=== PATIENT | female | born 1995 | race African-American/Black ===

== ENCOUNTER 2017-01-13 18:13 | Observation (INO) | payer SELFPAY ==
[~2017-01-13] VITALS: Ht 170.2 cm; Wt 65.0 kg
[2017-01-13 18:14] VITALS: BP 125/78; PULSE 85; RESP 18; TEMP 98.9; O2SAT 100
--- NOTE | 2017-01-13 20:23 | PD ---
HPI Chief Complaint: Abdominal Pain Time Seen by Provider: 20:12 Travel History International Travel<30 days: No Contact w/Intl Traveler<30days: No Traveled to known affect area: No History of Present Illness HPI 21-year-old female here for evaluation of abdominal pain and abnormal CT scan. The patient reports that for the last 2 weeks she has been having diffuse abdominal pain described as sharp, currently 6 out of 10, constant, intermittently worse at times, worse with movement and palpation. She had a CT abdomen pelvis performed at [address] [place] [address] [facility] which shows significantly abnormal exam with large amount of high density blood in the pelvis with bilateral enlarged dominant follicles within the ovaries which may represent the source of bleeding. The appendix was not visualized. Patient denies vaginal bleeding or discharge. She is sexually active with one partner whom she has been with for 3 years and believe she is in a monogamous relationship. No urinary symptoms. No fevers or chills. She has been feeling nauseous as well as light headed and feeling as though she may pass out. No history of abdominal surgeries. The patient also complains of being constipated over the last several days. Her LMP was December 29. [facility] Past Medical History ?: Not LMP: 12/29/16 Social History Tobacco Use: No Allergies-Medications (Allergen,Severity, Reaction): Coded Allergies: Penicillins (Verified Allergy, Unknown, 01/13/17) Review of Systems Except as stated in HPI: all other systems reviewed are Neg Physical Exam Narrative GENERAL: Well-developed, well-nourished, comfortable, no apparent distress. SKIN: Focused skin assessment warm/dry. HEAD: Atraumatic. Normocephalic. EYES: Pupils equal and round. No scleral icterus. No injection or drainage. ENT: Mucous membranes pink and moist. NECK: Trachea midline. No JVD. CARDIOVASCULAR: Regular rate and rhythm. RESPIRATORY: No accessory muscle use. Clear to auscultation. Breath sounds equal bilaterally. GASTROINTESTINAL: Abdomen soft, moderate distention with moderate diffuse tenderness. No peritoneal signs. MUSCULOSKELETAL: No obvious deformities. No clubbing. No cyanosis. No edema. NEUROLOGICAL: Awake and alert. No obvious cranial nerve deficits. Motor grossly within normal limits. Normal speech. PSYCHIATRIC: Appropriate mood and affect; insight and judgment normal. Data Data Last Documented VS Vital Signs Date Time Temp Pulse Resp B/P (MAP) Pulse Ox O2 Delivery O2 Flow Rate FiO2 01/13/17 20:28 85 18 120/67 (84) 100 Room Air 01/13/17 18:14 98.9 Orders Orders Complete Blood Count With Diff (01/13/17 20:16) Comprehensive Metabolic Panel (01/13/17 20:16) Type And Screen (01/13/17 20:16) Urinalysis - C+S If Indicated (01/13/17 20:16) Ed Urine Pregnancytest Poc (01/13/17 20:16) Prothrombin Time / Inr (Pt) (01/13/17 20:16) Act Partial Throm Time (Ptt) (01/13/17 20:16) Morphine Inj (Morphine Inj) (01/13/17 20:30) Ondansetron Inj (Zofran Inj) (01/13/17 20:30) Beta Hcg (Quant/Titer) (01/13/17 20:23) Us Pelvis Comp W Dop Transvag (01/13/17 ) Gc And Chlamydia Pcr (01/13/17 22:12) Wet Prep Profile (01/13/17 22:12) Admit Order (Ed Use Only) (01/13/17 22:14) Labs Laboratory Tests Test 01/13/17 20:25 01/13/17 22:15 White Blood Count 8.1 TH/MM3 Red Blood Count 3.72 MIL/MM3 Hemoglobin 11.0 GM/DL Hematocrit 32.8 % Mean Corpuscular Volume 88.2 FL Mean Corpuscular Hemoglobin 29.6 PG Mean Corpuscular Hemoglobin Concent 33.5 % Red Cell Distribution Width 12.9 % Platelet Count 379 TH/MM3 Mean Platelet Volume 7.3 FL Neutrophils (%) (Auto) 68.5 % Lymphocytes (%) (Auto) 21.0 % Monocytes (%) (Auto) 7.9 % Eosinophils (%) (Auto) 2.1 % Basophils (%) (Auto) 0.5 % Neutrophils # (Auto) 5.6 TH/MM3 Lymphocytes # (Auto) 1.7 TH/MM3 Monocytes # (Auto) 0.6 TH/MM3 Eosinophils # (Auto) 0.2 TH/MM3 Basophils # (Auto) 0.0 TH/MM3 CBC Comment DIFF FINAL Differential Comment Prothrombin Time 11.4 SEC Prothromb Time International Ratio 1.0 RATIO Activated Partial Thromboplast Time 32.3 SEC Urine Color LIGHT-YELLOW Urine Turbidity CLEAR Urine pH 5.5 Urine Specific [place] 1.031 Urine Protein NEG mg/dL Urine Glucose (UA) NEG mg/dL Urine Ketones NEG mg/dL Urine Occult Blood NEG Urine Nitrite NEG Urine Bilirubin NEG Urine Urobilinogen LESS THAN 2.0 MG/DL Urine Leukocyte Esterase NEG Urine RBC LESS THAN 1 /hpf Urine WBC 1 /hpf Urine Squamous Epithelial Cells 3 /hpf Urine Bacteria RARE /hpf Urine Mucus FEW /lpf Microscopic Urinalysis Comment CULT NOT INDICATED Blood Urea Nitrogen 13 MG/DL Creatinine 0.81 MG/DL Random Glucose 87 MG/DL Total Protein 8.4 GM/DL Albumin 3.5 GM/DL Calcium Level 8.4 MG/DL Alkaline Phosphatase 61 U/L Aspartate Amino Transf (AST/SGOT) 12 U/L Alanine Aminotransferase (ALT/SGPT) 16 U/L Total Bilirubin 0.3 MG/DL Sodium Level 136 MEQ/L Potassium Level 3.7 MEQ/L Chloride Level 105 MEQ/L Carbon Dioxide Level 25.4 MEQ/L Anion Gap 6 MEQ/L Estimat Glomerular Filtration Rate 106 ML/MIN Human Chorionic Gonadotropin, Quant LESS THAN 1 MIU/ML Clue Cells (Wet Prep) NONE SEEN Vaginal Trichomonas (Wet Prep) NONE SEEN Vaginal Yeast (Wet Prep) NONE SEEN Chlamydia trachomatis DNA (PCR) NOT DETECTED Neisseria gonorrhoeae DNA (PCR) NOT DETECTED MDM Medical Decision Making Medical Screen Exam Complete: Yes Emergency Medical Condition: Yes Differential Diagnosis Hemoperitoneum, ovarian cyst, ovarian torsion, ectopic /ruptured ectopic , ileus Narrative Course 9:00PM: OB hospitalist Dr. Arredondo was contacted and agrees with plan for labs and pelvic US. She will present to the ED to evaluate the patient. Vital signs show heart rate 85, blood pressure 125/78, pulse ox 100% on room air , oral temp of 98.9F. CBC: WBC 8.1, hemoglobin 11, hematocrit 32.8, platelets 379. CMP is essentially unremarkable. Beta hCG is negative. UA shows rare bacteria, not suggestive of UTI. The patient was evaluated by OB hospitalist Dr. Arredondo who will admit the patient to her service for further treatment and evaluation of hemoperitoneum, ovarian cyst. Diagnosis Primary Impression: Hemoperitoneum Additional Impressions: Ovarian cyst Qualified Codes: N83.201 - Unspecified ovarian cyst, right side; N83.202 - Unspecified ovarian cyst, left side Abdominal pain Qualified Codes: R10.84 - Generalized abdominal pain Admitting Information Admitting Physician Requests: Observation Tom Carrera MD Jan 13, 2017 20:23
[2017-01-13 20:28] VITALS: BP 120/67; PULSE 85; RESP 18; O2SAT 100
[2017-01-13] MEDS ORDERED: MORPHINE SULFATE 4 MG/ML INJ IV PUSH ONE (20:30)
[2017-01-13] MEDS ORDERED: ONDANSETRON HCL 4 MG/2 ML VIAL IV PUSH ONE (20:30)
[2017-01-13 21:24] LABS: AUTOMATED NEUTROPHIL # 5.6 TH/MM3 (1.8-7.7); BASOPHIL % 0.5 % (0.0-2.0); EOSINOPHIL # 0.2 TH/MM3 (0-0.4); EOSINOPHIL % 2.1 % (0.0-4.0); HEMATOCRIT 32.8 % (35.0-46.0); HEMO FLAGS DIFF FINAL; LYMPHOCYTE # 1.7 TH/MM3 (1.0-4.8); MEAN CELL VOLUME 88.2 FL (80.0-100.0); MEAN CORPUSCULAR HEMOGLOBIN 29.6 PG (27.0-34.0); MEAN CORPUSCULAR HGB CONC 33.5 % (32.0-36.0); MONO % 7.9 % (0.0-8.0); NEUT % 68.5 % (16.0-70.0); PLATELET COUNT 379 TH/MM3 (150-450); RED BLOOD COUNT 3.72 MIL/MM3 (4.00-5.30); RED CELL DISTRIBUTION WIDTH 12.9 % (11.6-17.2); WHITE BLOOD COUNT 8.1 TH/MM3 (4.0-11.0)
[2017-01-13 21:27] LABS: BACTERIA, URINE RARE /hpf; BLOOD, URINE NEG (NEG); COMMENT (UR) CULT NOT INDICATED; CULTURE IF INDICATED CULT NOT INDICATED; GLUCOSE,URINE NEG (NEG); KETONE, URINE NEG (NEG); MUCUS URINE FEW /lpf (OCC); NITRITE,URINE NEG (NEG); PH, URINE 5.5 (5.0-8.5); SQUAMOUS EPITHELIAL CELL URINE 3 /hpf (0-5); URINE COLOR LIGHT-YELLOW (YELLW/STRAW)
[2017-01-13 21:41] LABS: ANION GAP 6 MEQ/L (5-15); AST (GOT) 12 U/L (15-37); BICARBONATE 25.4 MEQ/L (21.0-32.0); BLOOD UREA NITROGEN 13 MG/DL (7-18); CHLORIDE 105 MEQ/L (98-107); GLOMERULAR FILTRATION RATE 106 ML/MIN (>89); POTASSIUM 3.7 MEQ/L (3.5-5.1); SODIUM (NA) 136 MEQ/L (136-145)
[2017-01-13 21:44] LABS: APTT (PATIENT) 32.3 SEC (24.3-30.1); BETA HCG QUANT LESS THAN 1 MIU/ML (0-5); PROTHROMBIN TIME - PATIENT 11.4 SEC (9.8-11.6)
[2017-01-13 21:45] LABS: ALKALINE PHOSPHATASE 61 U/L (45-117); ALT (GPT) 16 U/L (10-53); TOTAL BILIRUBIN ADULT 0.3 MG/DL (0.2-1.0)
--- NOTE | 2017-01-13 22:08 | RADRPT ---
EXAM DATE/TIME: 01/13/2017 20:40 [facility] COMPARISON: No previous studies available for comparison. EXTERNAL COMPARISON : [facility] [place], CT ABDOMEN & PELVIS W CONTRAST, January 13, 2017 INDICATIONS : Pelvic pain and abnormal CT. MEDICAL HISTORY : Pelvic pain. SURGICAL HISTORY : None. ENCOUNTER: Initial ACUITY: 2 days PAIN SCORE: 10/10 LOCATION: Bilateral pelvis MEASUREMENTS: UTERUS: 6.6 x 4.1 x 3.8 cm ENDOMETRIAL STRIPE: >20 mm FINDINGS: UTERUS: The myometrium has homogeneous echotexture without mass.The uterus is within normal limits for the pa tient's age. RIGHT OVARY: There is a complex 5.1 x 5.3 x 4.7 cm mass. There appears to have a complex cystic component with low level echoes. A normal appearing separate ovary is not seen. LEFT OVARY: There is a 4.6 x 4.1 x 3.6 cm complex predominantly cystic mass seen in the left adnexa. The cystic c omponent has low level echoes. A normal appearing separate ovary is not seen. MISCELLANEOUS: There is minimal free fluid. CONCLUSION: Chronic complex adnexal masses seen bilaterally. Separate normal appearing ovaries are not seen. Thes e could be hemorrhagic cyst, endometriomas, or other processes such as tubo-ovarian abscesses. Tavo Penny MD on January 13, 2017 at 22:00 Board Certified Radiologist. This report was verified electronically.
[2017-01-13 22:26] VITALS: BP 117/78; PULSE 71; RESP 18; O2SAT 98
--- NOTE | 2017-01-13 22:37 | HHI.HP ---
HPI Chief Complaint Abdominal pain Travel History International Travel<30 Days: No Contact w/Intl Traveler<30Days: No Known Affected Area: No History of Present Illness HPI The patient is 21-year-old 0 who presented to the ED for evaluation of abdominal pain and abnormal CT scan. She reports that for the last 2 weeks she' s been having diffuse abdominal pain described as dull but with sharp cramping characteristics, 6 out of 10 upon her arrival to the ED, constant, intermittently worse at times, worse with movement and palpation. She reported to me that the pain onset acutely after dinner on 12/31/16. At that point it was severe pain that lasted for 8 hours with radiation to her back. She reports that she had that type of pain again 4 days ago but otherwise the pain is mostly dull in nature with the sharp cramps that have been described above. She had a CT of the abdomen and pelvis performed at [facility] weeks radiology that showed a large amount of high density blood in the pelvis with bilateral enlarged dominant follicles within the ovaries. The patient denies any vaginal bleeding or discharge. She reports her last menstrual period was December 29 through January 04. She is sexually active with 1 partner whom she has been with for 3 years and believes she is in a monogamous relationship. She denies any fever or chills. She reports she's been feeling nauseous. She reported to the ED attending that she felt lightheaded like she may pass out but didn't report those symptoms at this time. She reports that she's been constipated and having some urinary symptoms. She reports she is more comfortable when she lies on her last side. She reports that the pain is improved after getting morphine in the ED. She reports no improvement with Tylenol at home. History Past Medical History Medical History: Denies Significant Hx Obstetric History Obstetric History G0 Menarche age 10, menses occur every month, and last 7 days History of chlamydia in 2012 Patient denies any history of abnormal Paps Past Surgical History Surgical History: No Previous Surgery Family History Narrative Family History Gastric ulcers, colon cancer Social History Alcohol Use: Yes (occasional) Tobacco Use: No Substance Abuse: No Allergies-Medications (Allergen,Severity, Reaction): Coded Allergies: Penicillins (Verified Allergy, Unknown, 01/13/17) Review of Systems General / Constitutional: No: Fever, Weight Gain, Weight Loss, Chills, Other Eyes: No: Diploplia, Blurred Vision, Visual changes, Pain, Photophobia, Other HENT: No: Headaches, Vertigo, Dental Difficulties, Lightheadedness, Other Cardiovascular: No: Irregular Rhythm, Chest Pain or Discomfort, Palpitations, Tachycardia, Syncope, Varicosities, Edema, Cyanosis, Other Respiratory: No: Cough, Short of Breath, Wheezing, Other Gastrointestinal: Nausea, Constipation Genitourinary: Dysuria Musculoskeletal: No: Limited ROM, Weakness, Cramping, Edema, Pain, Other Skin: No Rash, No Itching, No Dryness, No Lumps, No Change in Pigmentation, No Change in Nails, No Alopecia, No Lesions, No Breast Lumps, No Breast Tenderness , No Breast Swelling, No Other Neurologic: No: Weakness, Dizziness, Syncope, Focal Abnormalities, Coordination Problem, Headache, Slurred Speech, Seizures, Other Psychiatric: No: Anxiety, Depression, Suicidal Ideations, Disorder of Thought, Mood Disorder, Substance Abuse, Homicidal Ideation, Other Endocrine: No: Heat Intolerance, Cold Intolerance, Polydipsia, Polyuria, Other Hematologic/Lymphatic: No Easy Bruising, No Lymph Node Enlargement, No Other Physical Exam Vital Signs Date Time Temp Pulse Resp B/P (MAP) Pulse Ox O2 Delivery O2 Flow Rate FiO2 01/13/17 22:26 71 18 117/78 (91) 98 Room Air 01/13/17 20:28 85 18 120/67 (84) 100 Room Air 01/13/17 18:14 98.9 85 18 125/78 (94) 100 Room Air Narrative GENERAL: Well-nourished, well-developed patient. SKIN: Warm and dry. HEAD: Normocephalic and atraumatic. EYES: No scleral icterus. No injection or drainage. ENT: No nasal drainage noted. Mucous membranes pink. Airway patent. NECK: Supple, trachea midline. No JVD. CARDIOVASCULAR: Regular rate and rhythm without murmurs, gallops, or rubs. RESPIRATORY: Breath sounds equal bilaterally. No accessory muscle use. BREASTS: Deferred ABDOMEN/GI: Abdomen soft, mildly tender, bowel sounds present, no rebound, no guarding GENITOURINARY: External Genitalia: intact and normal in appearance. Normal BUS. Vagina with increased thick white discharge. Grossly normal rugae. No cervical or vaginal masses noted. EXTREMITIES: No cyanosis or edema. BACK: Nontender without obvious deformity. No CVA tenderness. NEUROLOGICAL: Awake and alert. Motor and sensory grossly within normal limits. Five out of 5 muscle strength in all muscle groups. Normal speech. Psychiatric: Grossly normal memory and affect Musculoskeletal: Grossly normal range of motion, muscle strength Caprini VTE Risk Assessment Caprini VTE Risk Assessment: No/Low Risk (score <= 1) Caprini Risk Assessment Model Point Value = 1 Point Value = 2 Point Value = 3 Point Value = 5 Age 41-60 Minor surgery BMI > 25 kg/m2 Swollen legs Varicose veins or History of unexplained or recurrent spontaneous Oral contraceptives or hormone replacement Sepsis (< 1 month) Serious lung disease, including pneumonia (< 1 month) Abnormal pulmonary function Acute myocardial infarction Congestive heart failure (< 1 month) History of inflammatory bowel disease Medical patient at bed rest Age 61-74 Arthroscopic surgery Major open surgery (> 45 min) Laparoscopic surgery (> 45 min) Malignancy Confined to bed (> 72 hours) Immobilizing plaster cast Central venous access Age >= 75 History of VTE Family history of VTE Factor V Leiden Prothrombin [id number] Lupus anticoagulant Anticardiolipin antibodies Elevated serum homocysteine Heparin-induced thrombocytopenia Other congenital or acquired thrombophilia Stroke (< 1 month) Elective arthroplasty Hip, pelvis, or leg fracture Acute spinal cord injury (< 1 month) Prophylaxis Regimen Total Risk Factor Score Risk Level Prophylaxis Regimen 0-1 Low Early ambulation 2 Moderate Order ONE of the following: *Sequential Compression Device (SCD) *Heparin 5000 units SQ BID 3-4 Higher Order ONE of the following medications: *Heparin 5000 units SQ TID *Enoxaparin/Lovenox 40 mg SQ daily (WT < 150 kg, CrCl > 30 mL/min) *Enoxaparin/Lovenox 30 mg SQ daily (WT < 150 kg, CrCl > 10-29 mL/min) *Enoxaparin/Lovenox 30 mg SQ BID (WT < 150 kg, CrCl > 30 mL/min) AND/OR *Sequential Compression Device (SCD) 5 or more Highest Order ONE of the following medications: *Heparin 5000 units SQ TID (Preferred with Epidurals) *Enoxaparin/Lovenox 40 mg SQ daily (WT < 150 kg, CrCl > 30 mL/min) *Enoxaparin/Lovenox 30 mg SQ daily (WT < 150 kg, CrCl > 10-29 mL/min) *Enoxaparin/Lovenox 30 mg SQ BID (WT < 150 kg, CrCl > 30 mL/min) AND *Sequential Compression Device (SCD) Data Data Orders Orders Complete Blood Count With Diff (01/13/17 20:16) Comprehensive Metabolic Panel (01/13/17 20:16) Type And Screen (01/13/17 20:16) Urinalysis - C+S If Indicated (01/13/17 20:16) Ed Urine Pregnancytest Poc (01/13/17 20:16) Prothrombin Time / Inr (Pt) (01/13/17 20:16) Act Partial Throm Time (Ptt) (01/13/17 20:16) Morphine Inj (Morphine Inj) (01/13/17 20:30) Ondansetron Inj (Zofran Inj) (01/13/17 20:30) Beta Hcg (Quant/Titer) (01/13/17 20:23) Us Pelvis Comp W Dop Transvag (01/13/17 ) Gc And Chlamydia Pcr (01/13/17 22:12) Wet Prep Profile (01/13/17 22:12) Admit Order (Ed Use Only) (01/13/17 22:14) Hydro Excavation Operator / Telemetry EVA.Q8H (01/13/17 22:35) Diet Npo (01/14/17 Breakfast) Activity Oob With Assistance (01/13/17 22:35) Labs Laboratory Tests Test 01/13/17 20:25 01/13/17 22:15 White Blood Count 8.1 Red Blood Count 3.72 Hemoglobin 11.0 Hematocrit 32.8 Mean Corpuscular Volume 88.2 Mean Corpuscular Hemoglobin 29.6 Mean Corpuscular Hemoglobin Concent 33.5 Red Cell Distribution Width 12.9 Platelet Count 379 Mean Platelet Volume 7.3 Neutrophils (%) (Auto) 68.5 Lymphocytes (%) (Auto) 21.0 Monocytes (%) (Auto) 7.9 Eosinophils (%) (Auto) 2.1 Basophils (%) (Auto) 0.5 Neutrophils # (Auto) 5.6 Lymphocytes # (Auto) 1.7 Monocytes # (Auto) 0.6 Eosinophils # (Auto) 0.2 Basophils # (Auto) 0.0 CBC Comment DIFF FINAL Differential Comment Prothrombin Time 11.4 Prothromb Time International Ratio 1.0 Activated Partial Thromboplast Time 32.3 Urine Color LIGHT-YELLOW Urine Turbidity CLEAR Urine pH 5.5 Urine Specific [place] 1.031 Urine Protein NEG Urine Glucose (UA) NEG Urine Ketones NEG Urine Occult Blood NEG Urine Nitrite NEG Urine Bilirubin NEG Urine Urobilinogen LESS THAN 2.0 Urine Leukocyte Esterase NEG Urine RBC LESS THAN 1 Urine WBC 1 Urine Squamous Epithelial Cells 3 Urine Bacteria RARE Urine Mucus FEW Microscopic Urinalysis Comment CULT NOT INDICATED Blood Urea Nitrogen 13 Creatinine 0.81 Random Glucose 87 Total Protein 8.4 Albumin 3.5 Calcium Level 8.4 Alkaline Phosphatase 61 Aspartate Amino Transf (AST/SGOT) 12 Alanine Aminotransferase (ALT/SGPT) 16 Total Bilirubin 0.3 Sodium Level 136 Potassium Level 3.7 Chloride Level 105 Carbon Dioxide Level 25.4 Anion Gap 6 Estimat Glomerular Filtration Rate 106 Human Chorionic Gonadotropin, Quant LESS THAN 1 Assessment/Plan Assessment and Plan Assessment/plan: 1. Suspected hemoperitoneum: CT scan showed a large amount of high density blood in the pelvis. Ultrasound commented there was minimal free fluid. Suspect the patient had a ruptured hemorrhagic cyst that has since stopped bleeding. I discussed the option of surgical evacuation of hemoperitoneum versus expectant management and observation overnight with the patient. The patient declined surgery at this time. I discussed that the patient is actively bleeding at this time she would require surgery, as well as for a large hemoglobin drop, or other significant concerns. We'll admit the patient for 23 hour observation and check serial hemoglobins. Scheduled the patient that I think at this time the cyst has stopped bleeding so surgery would primarily be to evacuate hemoperitoneum. We'll make nothing by mouth for now. 2. Bilateral complex ovarian mass: Right semi-is accomplished 5.1 x 5.3 x 4.7 cm mass with a complex cystic component and left ovaries 4.6 x 4.1 x 3.6 cm complex predominantly cystic mass. Will refer to Dr. Lu for outpatient evaluation and management 3. Vaginal discharge: Wet prep and GC chlamydia cultures were sent 4. UA negative Edie Arredondo MD Jan 13, 2017 22:37
[2017-01-13 23:08] VITALS: BP 106/56; PULSE 76; RESP 16; TEMP 98.5; O2SAT 100
[2017-01-14] VITALS (8 sets, daily range): BP systolic 93–110; BP diastolic 53–81; PULSE 77–101; RESP 16–18; TEMP 98–98.4; O2SAT 95–100
[2017-01-14 00:40] LABS: CHLAMYDIA PCR NOT DETECTED (NOT DETECT); NEISSERIA PCR NOT DETECTED (NOT DETECT)
[2017-01-14] MEDS ORDERED: oxyCODONE/ACETAMINOPHEN 5 MG/325 MG TAB PO PRN (00:45)
[2017-01-14] MEDS ORDERED: MORPHINE SULFATE 4 MG/ML INJ IV ONE (00:45)
[2017-01-14] MEDS: oxyCODONE/ACETAMINOPHEN 5 MG/325 MG TAB PO PRN ×2 (03:11→14:34)
[2017-01-14 09:02] LABS: HEMATOCRIT 28.5 % (35.0-46.0); MEAN CELL VOLUME 88.1 FL (80.0-100.0); MEAN CORPUSCULAR HEMOGLOBIN 29.6 PG (27.0-34.0); MEAN CORPUSCULAR HGB CONC 33.6 % (32.0-36.0); PLATELET COUNT 317 TH/MM3 (150-450); RED BLOOD COUNT 3.23 MIL/MM3 (4.00-5.30); RED CELL DISTRIBUTION WIDTH 12.7 % (11.6-17.2); REVIEW FLAG FINAL; WHITE BLOOD COUNT 7.8 TH/MM3 (4.0-11.0)
--- NOTE | 2017-01-14 11:13 | PD.CONS ---
History & Physical H&P S: Patient reports feeling ok. Abdominal pains doing better. O: Vital Signs Date Time Temp Pulse Resp B/P (MAP) Pulse Ox O2 Delivery O2 Flow Rate FiO2 01/14/17 08:15 98.0 82 18 93/53 (66) 95 01/13/17 22:26 Room Air GENERAL: Well-nourished, well-developed patient. SKIN: Warm and dry. HEAD: Normocephalic. EYES: No scleral icterus. No injection or drainage. NECK: Supple, trachea midline. No JVD or lymphadenopathy. CARDIOVASCULAR: Extremities warm and well-perfused. RESPIRATORY: No signs of respiratory distress. No accessory muscle use. GASTROINTESTINAL: Abdomen soft, tender to palpation of lower abdomen, nondistended. No rebound tenderness. EXTREMITIES: No cyanosis, or edema. NEUROLOGICAL: Awake, alert, and oriented x 3. Non-focal. Last Impressions Abdomen/Pelvis/Transvag US 01/13/17 0000 Signed Impressions: Service Date/Time: December 20:40 - CONCLUSION: Chronic complex adnexal masses seen bilaterally. Separate normal appearing ovaries are not seen. These could be hemorrhagic cyst, endometriomas, or other processes such as tubo-ovarian abscesses. Tavo Penny MD Assessment/plan: 1. Suspected hemoperitoneum: CT scan showed a large amount of high density blood in the pelvis. Ultrasound commented there was minimal free fluid. Suspect the patient had a ruptured hemorrhagic cyst that has since stopped bleeding. Start on clear liquids and advance as tolerated. Repeat H&H this afternoon. If stable, plan on discharge. 2. Bilateral complex ovarian mass: Right semi-is accomplished 5.1 x 5.3 x 4.7 cm mass with a complex cystic component and left ovaries 4.6 x 4.1 x 3.6 cm complex predominantly cystic mass, likely normal follicle. Will refer to Dr. Lu for outpatient evaluation and management. For this problem, patient is cleared for discharge and outpatient follow-up. 3. Vaginal discharge: Wet prep and GC chlamydia were negative 4. UA negative d/w Dr. Arredondo Addendum: H&H is stable. Will proceed with discharge. d/w Dr. Heard. Erickson Azevedo MD R2 Jan 14, 2017 11:13
[2017-01-14] MEDS ORDERED: ACETAMINOPHEN 500 MG CPLT PO PRN (12:30)
[2017-01-14 15:24] LABS: HEMATOCRIT 29.9 % (35.0-46.0); MEAN CORPUSCULAR HEMOGLOBIN 28.9 PG (27.0-34.0); MEAN CORPUSCULAR HGB CONC 32.8 % (32.0-36.0); PLATELET COUNT 351 TH/MM3 (150-450); RED BLOOD COUNT 3.39 MIL/MM3 (4.00-5.30); RED CELL DISTRIBUTION WIDTH 12.7 % (11.6-17.2); REVIEW FLAG FINAL; WHITE BLOOD COUNT 6.4 TH/MM3 (4.0-11.0)
[2017-01-14] MEDS ORDERED: ACET500T13 PO (17:43)
--- NOTE | 2017-01-14 17:44 | HHI.DCPOC ---
Discharge Care Plan Diagnosis: (1) Hemoperitoneum (2) Ovarian cyst (3) Abdominal pain Report Symptoms to Your Doctor -Temperature above 100.5 degrees -Redness, of incision or excessive or foul smelling drainage -Unusual pain or calf pain -Increased vaginal bleeding -Painful or difficulty urinating -Feelings of extreme sadness or anxiety after 2 weeks Goals to Promote Your Health * To prevent worsening of your condition and complications, please follow up with Dr. Lu. * To maintain your health at the optimal level, please follow up with your primary care provider. Directions to Meet Your Goals Take your medications as prescribed Follow your dietary instruction Follow activity as directed Ensure plenty of rest for recovery Drink fluids for hydration Keep your appointments as scheduled Take your immunizations and boosters as scheduled If your symptoms worsen call your PCP, if no PCP go to Urgent Care Center or Emergency Room Smoking is Dangerous to Your Health. Avoid second hand smoke Call the 24-hour crisis hotline for domestic abuse at Erickson Azevedo MD R2 Jan 14, 2017 17:43
[2017-01-14] MEDS ORDERED: MIRA3350 PO (18:29)
[2017-01-14] MEDS ORDERED: DOCU8.6T PO (18:29)
[2017-01-14] MEDS ORDERED: ZOFR4TAB3 SL (18:29)
[2017-01-14] MEDS ORDERED: ONDANSETRON HCL 4 MG/2 ML VIAL IV PUSH ONE (18:30)
== END 2017-01-14 21:02 | disposition home or self-care (01) ==
LOC: NEPE 18:13 → NEDA 22:16 → NEPGCP 22:53
PROVIDERS: ADMIT Obstetrics & Gynecology; ATTEND Obstetrics & Gynecology
DX: K66.1 Hemoperitoneum (principal); N83.201 Unspecified ovarian cyst, right side; R42 Dizziness and giddiness; R11.0 Nausea; K59.00 Constipation, unspecified
CPT/HCPCS: 76830; 76856; 80053; 81001; 84702; 84703; 85025; 85027; 85610; 85730; 86850; 86900; 86901; 87210; 87491; 87591; 93975; 96374; 96375; 96376; 99285; G0378; J2270; J2405

== ENCOUNTER 2017-03-14 10:09 | Observation (INO) | payer OTHER ==
[~2017-03-14] VITALS: Ht 170.2 cm; Wt 66.2 kg
[~2017-03-14 10:09] MED LIST: ACET500T13 PO; DOCU8.6T PO; MIRA3350 PO; ZOFR4TAB3 SL
[2017-03-14] MEDS ORDERED: LACTATED RINGER'S 1000 ML IV PRN (10:45)
[2017-03-14] MEDS ORDERED: METOPROLOL TARTRATE 25 MG TAB PO PRN (10:45)
[2017-03-14] MEDS ORDERED: SODIUM CHLORID 0.9% 500 ML IV PRN (10:45)
[2017-03-14] MEDS ORDERED: POVIDONE IODINE 5% (ANTISEPSIS KIT) 4 APPLICATIONS EACH NARE PRN ×2 (10:45→11:45)
[2017-03-14] MEDS ORDERED: CHLORHEXIDINE GLUCONATE 2 % 1 PACK (2 CLOTHS) TOPICAL PRN ×2 (10:45→11:45)
[2017-03-14] MEDS ORDERED: ACETAMINOPHEN 1000 MG/100 ML 100 ML IV ONE (11:38)
[2017-03-14] MEDS ORDERED: MIDAZOLAM HCL 2 MG/2 ML VIAL ONE (11:39)
[2017-03-14] MEDS ORDERED: BUPIVACAINE/EPINEPHRINE 0.5% PF 30 ML VIAL ONE (11:42)
[2017-03-14] MEDS ORDERED: ceFAZolin INJ 1,000 MG VIAL ONE (11:48)
[2017-03-14] MEDS ORDERED: SODIUM CHLORIDE 0.9% INJ 100 ML ONE (11:49)
[2017-03-14 11:58] LABS: AUTOMATED NEUTROPHIL # 2.7 TH/MM3 (1.8-7.7); BASOPHIL % 0.5 % (0.0-2.0); EOSINOPHIL # 0.1 TH/MM3 (0-0.4); EOSINOPHIL % 1.1 % (0.0-4.0); HEMATOCRIT 36.1 % (35.0-46.0); HEMOGLOBIN 11.7 GM/DL (11.6-15.3); LYMPH % 33.7 % (9.0-44.0); LYMPHOCYTE # 1.7 TH/MM3 (1.0-4.8); MEAN CELL VOLUME 87.5 FL (80.0-100.0); MEAN CORPUSCULAR HEMOGLOBIN 28.4 PG (27.0-34.0); MEAN CORPUSCULAR HGB CONC 32.5 % (32.0-36.0); MEAN PLATELET VOLUME 7.4 FL (7.0-11.0); MONO % 11.8 % (0.0-8.0); MONOCYTE # 0.6 TH/MM3 (0-0.9); NEUT % 52.9 % (16.0-70.0); PLATELET COUNT 278 TH/MM3 (150-450); RED BLOOD COUNT 4.13 MIL/MM3 (4.00-5.30); RED CELL DISTRIBUTION WIDTH 13.6 % (11.6-17.2); WHITE BLOOD COUNT 5.2 TH/MM3 (4.0-11.0)
[2017-03-14] MEDS ORDERED: FAMOTIDINE 20 MG/2 ML VIAL ONE (11:59)
[2017-03-14] MEDS ORDERED: NEOSTIGMINE 5 MG/5 ML SYRINGE IV PUSH ONE (12:00)
[2017-03-14] MEDS ORDERED: LIDOCAINE HCL 1% PF 5 ML SYRINGE OTHER ONE (12:00)
[2017-03-14] MEDS ORDERED: PROPOFOL 200 MG/20 ML AMP IV ONE (12:00)
[2017-03-14] MEDS ORDERED: ROCURONIUM INJ 50 MG/5 ML SYRINGE IV PUSH ONE (12:00)
[2017-03-14] MEDS ORDERED: ceFAZolin 1,000 MG/NS 100 ML IV ONE ×2 (12:00)
[2017-03-14] MEDS ORDERED: ONDANSETRON HCL 4 MG/2 ML VIAL IV PUSH ONE (12:00)
[2017-03-14] MEDS ORDERED: GLYCOPYRROLATE 1 MG/5 ML SYRINGE IV PUSH ONE (12:00)
[2017-03-14] MEDS ORDERED: DEXAMETHASONE SOD PHOS 4 MG/ML VIAL IV ONE (12:00)
[2017-03-14 12:05] LABS: BACTERIA, URINE RARE /hpf; BILIRUBIN, URINE NEG (NEG); BLOOD, URINE NEG (NEG); GLUCOSE,URINE NEG (NEG); HYALINE CAST, URINE 1 /lpf (RARE); KETONE, URINE NEG (NEG); MUCUS URINE FEW /lpf (OCC); NITRITE,URINE NEG (NEG); PH, URINE 5.5 (5.0-8.5); SQUAMOUS EPITHELIAL CELL URINE 4 /hpf (0-5); URINE COLOR YELLOW (YELLW/STRAW); URINE LEUKOCYTE ESTERASE NEG (NEG)
[2017-03-14 12:16] LABS: BICARBONATE 22.9 MEQ/L (21.0-32.0); BLOOD UREA NITROGEN 16 MG/DL (7-18); CALCIUM 8.8 MG/DL (8.5-10.1); CHLORIDE 107 MEQ/L (98-107); CREATININE 0.72 MG/DL (0.50-1.00); GLOMERULAR FILTRATION RATE 121 ML/MIN (>89); GLUCOSE,RANDOM 81 MG/DL (74-106); SODIUM (NA) 138 MEQ/L (136-145)
[2017-03-14] MEDS ORDERED: SODIUM CHLORIDE 0.9% FLUSH 10 ML FLUSH IV FLUSH PRN (12:45)
[2017-03-14] MEDS ORDERED: diphenhydrAMINE HCL 25 MG CAP PO PRN (12:45)
[2017-03-14] MEDS ORDERED: LORazepam 0.5 MG TAB PO PRN (12:45)
[2017-03-14] MEDS ORDERED: HYDROmorphone HCL PF 2 MG/ML VIAL IV PUSH PRN (12:45)
[2017-03-14] MEDS ORDERED: ZOLPIDEM TARTRATE 5 MG TAB PO PRN (12:45)
[2017-03-14] MEDS ORDERED: oxyCODONE/ACETAMINOPHEN 5 MG/325 MG TAB PO PRN (12:45)
[2017-03-14] MEDS ORDERED: PILL SPLITTER OTHER PRN (13:15)
[2017-03-14] MEDS ORDERED: DO NOT ADM ANY ANTICOAGULANT DRUGS PRN (13:57)
[2017-03-14] MEDS ORDERED: *MEPERIDINE 25 MG INJ VIAL PERIprocedural Use ONLY ONE ×2 (13:57→14:54)
[2017-03-14] MEDS ORDERED: *morphine SULFATE 4 MG/ML PERIprocedure ONLY ONE ×2 (14:10→15:21)
[2017-03-14] MEDS ORDERED: ePHEDrine/NS 25 MG/5 ML SYRINGE ONE (14:49)
[2017-03-14] MEDS: oxyCODONE/ACETAMINOPHEN 5 MG/325 MG TAB PO PRN ×2 (14:50→23:00)
[2017-03-14] MEDS: LACTATED RINGER'S 1000 ML INJ 1,000 ML IV SCH ×2 (14:58→21:03)
[2017-03-14] MEDS ORDERED: LACTATED RINGER'S 1000 ML INJ 500 ML IV ONE (15:00)
[2017-03-14] MEDS ORDERED: ePHEDrine/NS 25 MG/5 ML SYRINGE IV ONE (15:00)
[2017-03-14 16:15] VITALS: BP 103/59; PULSE 89; RESP 17; TEMP 98.4; O2SAT 100
[2017-03-14] MEDS: ONDANSETRON HCL 4 MG/2 ML VIAL IVP PRN ×2 (17:44→22:59)
[2017-03-14 20:00] VITALS: BP 93/50; PULSE 78; RESP 18; TEMP 97.7; O2SAT 100
[2017-03-14] MEDS: DOCUSATE SODIUM 100 MG CAP PO SCH (21:00)
[2017-03-14] MEDS ORDERED: SODIUM CHLORIDE 0.9% FLUSH 10 ML FLUSH IV FLUSH SCH (21:00)
[2017-03-14] MEDS: IBUPROFEN 600 MG TAB PO PRN (22:59)
[2017-03-15] VITALS: BP 80/48; PULSE 78; RESP 18; TEMP 97.8; O2SAT 100
[2017-03-15 04:00] VITALS: BP_SYST 77; BP_SYST 90; BP_DIAS 48; PULSE 79; RESP 18; TEMP 97.8; O2SAT 98
[2017-03-15] MEDS: IBUPROFEN 600 MG TAB PO PRN (04:41)
[2017-03-15] MEDS: LACTATED RINGER'S 1000 ML INJ 1,000 ML IV SCH (04:46)
[2017-03-15 06:16] LABS: BASOPHIL % 0.2 % (0.0-2.0); EOSINOPHIL % 0.2 % (0.0-4.0); HEMOGLOBIN 10.3 GM/DL (11.6-15.3); LYMPH % 11.4 % (9.0-44.0); LYMPHOCYTE # 1.3 TH/MM3 (1.0-4.8); MEAN CELL VOLUME 86.4 FL (80.0-100.0); MEAN CORPUSCULAR HEMOGLOBIN 28.7 PG (27.0-34.0); MEAN CORPUSCULAR HGB CONC 33.2 % (32.0-36.0); MEAN PLATELET VOLUME 7.8 FL (7.0-11.0); MONO % 8.4 % (0.0-8.0); MONOCYTE # 0.9 TH/MM3 (0-0.9); NEUT % 79.8 % (16.0-70.0); PLATELET COUNT 232 TH/MM3 (150-450); RED BLOOD COUNT 3.58 MIL/MM3 (4.00-5.30); RED CELL DISTRIBUTION WIDTH 13.4 % (11.6-17.2); WHITE BLOOD COUNT 11.3 TH/MM3 (4.0-11.0)
[2017-03-15 06:36] LABS: BICARBONATE 21.2 MEQ/L (21.0-32.0); CREATININE 0.69 MG/DL (0.50-1.00)
[2017-03-15 08:00] VITALS: BP 87/58; PULSE 75; RESP 14; TEMP 99.1; O2SAT 98
[2017-03-15] MEDS ORDERED: IBUP-232 PO (08:43)
--- NOTE | 2017-03-15 08:43 | HHI.DCPOC ---
Discharge Care Plan Report Symptoms to Your Doctor -Temperature above 100.5 degrees -Redness, of incision or excessive or foul smelling drainage -Unusual pain or calf pain -Increased vaginal bleeding -Painful or difficulty urinating -Feelings of extreme sadness or anxiety after 2 weeks Goals to Promote Your Health * To prevent worsening of your condition and complications * To maintain your health at the optimal level Directions to Meet Your Goals Take your medications as prescribed Follow your dietary instruction Follow activity as directed Ensure plenty of rest for recovery Drink fluids for hydration Keep your appointments as scheduled Take your immunizations and boosters as scheduled If your symptoms worsen call your PCP, if no PCP go to Urgent Care Center or Emergency Room Smoking is Dangerous to Your Health. Avoid second hand smoke Call the 24-hour crisis hotline for domestic abuse at Ashley Valderrama MD Mar 15, 2017 08:43
--- NOTE | 2017-03-15 08:45 | HHI.PR ---
Subjective Remarks Doing well, pain is well controlled, eating well. Objective Vital Signs Vital Signs Date Time Temp Pulse Resp B/P (MAP) Pulse Ox O2 Delivery O2 Flow Rate FiO2 03/15/17 04:00 97.8 79 18 77/48 (58) 98 90/48 (62) 03/15/17 00:00 97.8 78 18 80/48 (59) 100 03/14/17 20:00 97.7 78 18 93/50 (64) 100 03/14/17 16:15 98.4 89 17 103/59 (74) 100 03/14/17 15:44 79 15 98/53 (68) 100 Nasal Cannula 2 03/14/17 15:30 98.5 77 15 97/54 (68) 100 Nasal Cannula 2 03/14/17 15:15 90 17 100/57 (71) 100 Nasal Cannula 2 03/14/17 15:00 78 15 96/51 (66) 100 Nasal Cannula 2 03/14/17 14:45 74 17 97/55 (69) 100 Nasal Cannula 2 03/14/17 14:30 66 15 100/54 (69) 100 Nasal Cannula 2 03/14/17 14:15 69 16 91/53 (66) 100 Nasal Cannula 2 03/14/17 14:00 84 21 102/53 (69) 99 Nasal Cannula 2 03/14/17 13:55 97.5 101 25 109/54 (72) 100 Nasal Cannula 2 03/14/17 11:23 99.5 86 20 119/70 (86) 100 I/O 03/14/17 03/14/17 03/14/17 03/15/17 03/15/17 03/15/17 07:00 15:00 23:00 07:00 15:00 23:00 Intake Total 510 ml 75 ml Output Total 250 ml 300 ml 1200 ml Balance 260 ml -225 ml -1200 ml Intake Oral 10 ml IV Total 75 ml Other 500 ml Output Urine Total 150 ml 300 ml 1200 ml Estimated Blood Loss 100 ml Result Diagram: 03/15/1751603/15/17 05 Objective Remarks Chest is clear, regular rate and rhythm. Abdomen is soft and non-distended. Incision is clean and dry. Ext no CCE. A/P Assessment and Plan Post Op Day 1 Doing well Home today and return to office in two weeks. Ashley Valderrama MD Mar 15, 2017 08:45
--- NOTE | 2017-03-15 09:25 | PD.OP ---
Operative Report Date of Surgery: Mar 14, 2017 Preoperative Diagnosis: old hematoperitoneum large bilateral ovarian cysts pelvic pain Postoperative Diagnosis: multiple endometriomas adhesions old blood Procedure: exicsion of endometrioma x 4 pelvic lavage enterolysis Anesthesia: GET Surgeon: Ashley Valderrama Voice Pathologist(s): OR staff Operation and Findings: Ashley George MD Mar 15, 2017 09:25
[2017-03-15 10:02] VITALS: BP 89/58
[2017-03-15] MEDS: DOCUSATE SODIUM 100 MG CAP PO SCH (10:03)
[2017-03-15] MEDS: oxyCODONE/ACETAMINOPHEN 5 MG/325 MG TAB PO PRN (10:04)
[2017-03-15 10:50] VITALS: BP 88/57
--- NOTE | 2017-03-15 14:43 | MP ---
cc: DEBBIE CLEMENT DATE OF 1995 DATE OF PROCEDURE March 14, 2017 PREOPERATIVE DIAGNOSES 1. Old hemoperitoneum. 2. Severe pelvic pain. 3. Large bilateral ovarian masses. POSTOPERATIVE DIAGNOSES 1. Evidence of old abdominal bleed. 2. Large bilateral endometriomas. 3. Pelvic adhesions developed from four weeks of hematoperitoneum. PROCEDURE Laparoscopic excision of endometrioma x4, pelvic lavage, lysis of extensive adhesions. ANESTHESIA General. SURGEON MD Lavelle DINKEY LOCOMOTIVE OPERATOR OR staff. FINDINGS Examination under anesthesia was noncontributory. Upon entering the peritoneal cavity there was evidence of an old bleed in the abdomen with much hemosiderin throughout the cavity and lots of adhesions of the bowel to the uterus, tubes, sidewall. These were filmy and had not yet become dense and they were easily lysed and much pelvic lavage was performed. There were two large endometriomas on each ovary, both needing to be drained and then the cyst zhang removed. A significant amount of ovarian tissue was left on both sides. The tubes appeared normal on either side. The uterus was unremarkable. I did not see other gunpowder blue endometriosis in the cavity but this was difficult due to the amount of hemosiderin deposition, adhesions and leftover material. There was no evidence of other pathology or iatrogenic injury and I she tolerated the procedure well. PROCEDURE The patient was identified as Phan Lopez. She was taken to the OR, placed under general endotracheal anesthesia, prepped and draped in the usual sterile fashion in the dorsal lithotomy position. A time-out was performed with all in attending and she received Ancef 1 gram. A Yeung catheter was placed by the polymerization kettle operator and then a single-tooth tenaculum and acorn placed in the cervix. Attention was directed to the abdomen where a 5-mm incision was made in the umbilicus after infiltration with lidocaine and the 5-mm trocar and sleeve were placed under direct visualization. Direct placement was identified and a pneumoperitoneum was created with CO2. Then a 5-mm incision was made in the right lower quadrant and a 5-mm in the left that was later extended to a 12-mm. The trocars and sleeves were placed and then systematic evaluation of the abdominal and pelvic contents was performed. Liver edge and gallbladder were normal. Appendix was normal. The uterus was of normal size and the tubes were normal. Both ovaries were larger than the uterus with large bilateral, almost dumbbell type shaped cysts that were endometriomas. These were excised from both ovaries to try to leave only ovarian tissue and the adhesions that had developed from the uterus to the anterior abdominal wall from the tubes to the ovarian fossa, from the bowel and omentum to the uterus and tubes were all lysed. Copious pelvic lavage was performed to try and remove the hemosiderin and other materials from her previous hematoperitoneum. At the end of the case the pneumoperitoneum was released and evaluation for bleeding was done. The ovaries appeared to be hemostatic and no other pathology was identified. Sponge, instrument and needle count were correct. The harmonic scalpel was used to excise the ovary endometriomas and they were placed in an EndoCatch which was used to remove all the material and then this fascia was closed with 2-0 Vicryl in the left lower quadrant and the skin was closed with 4-0 Monocryl. The vaginal instrumentation was then removed. The Yeung was left in place. She was taken to the recovery room in stable condition. Debbie Clement MD PPC/SSB /9:24 AM /12:02 PM
== END 2017-03-15 10:55 | disposition home or self-care (01) ==
LOC: HSDC 10:09 → HSDI 12:42 → H1EA 15:50
PROVIDERS: ADMIT Obstetrics & Gynecology; ATTEND Obstetrics & Gynecology
DX: R10.2 Pelvic and perineal pain (principal); N73.6 Female pelvic peritoneal adhesions (postinfective); N80.1 Endometriosis of ovary
CPT/HCPCS: 00840; 49329; 58662; 80048; 81001; 84703; 85025; 86850; 86900; 86901; 88305; 96361; 96374; 96375; 96376; G0378; J0131; J0690; J1100; J1170; J2175; J2250; J2270; J2405; J2710; J3010; J7120

== ENCOUNTER 2017-04-05 11:14 | Emergency (ER) | payer OTHER ==
[~2017-04-05] VITALS: Ht 170.2 cm; Wt 65.9 kg
[~2017-04-05 11:14] MED LIST changes: -ACET500T13 PO; -DOCU8.6T PO; +IBUP-232 PO; -MIRA3350 PO; -ZOFR4TAB3 SL
[2017-04-05 11:15] VITALS: BP 113/71; PULSE 78; RESP 16; TEMP 98.7; O2SAT 100
--- NOTE | 2017-04-05 12:06 | PD ---
HPI Chief Complaint: Exposure to Blood/Body Fluids Time Seen by Provider: 11:46 Travel History International Travel<30 days: No Contact w/Intl Traveler<30days: No Traveled to known affect area: No History of Present Illness HPI 21-year-old female presents to the emergency Department with complaint of a needlestick injury to her left pinky finger that occurred today. She has a [employer] employee. She denies hepatitis or HIV status. Does not know the source patient's HIV or hepatitis status. Unknown tetanus status. Reports being up-to-date on vaccinations. Denies pain. Has not taken any medication to alleviate her symptoms. Has white the area with alcohol. No known aggravating or relieving factors. Allergies to iodinated contrast and penicillin. No primary care provider. Denies significant past medical history he has no other medical complaints. No other modifying factors or associated signs and symptoms. PFSH Past Medical History Blood Disorders: No Anxiety: No Depression: No Cardiovascular Problems: No Diabetes: No Endocrine: No Genitourinary: No Immune Disorder: Yes (steatocytoma multi plex) Musculoskeletal: No Neurologic: No Psychiatric: No Respiratory: No Thyroid Disease: No ?: Not Past Surgical History Gynecologic Surgery: Yes (4 ovarian cysts removed) Social History Alcohol Use: Yes (occasional) Tobacco Use: No Substance Use: No Allergies-Medications (Allergen,Severity, Reaction): Coded Allergies: Iodinated Contrast- Oral and IV Dye (Verified Allergy, Severe, Hives, ) Penicillins (Verified Allergy, Unknown, 04/05/17) Reported Meds & Prescriptions Reported Meds & Active Scripts Active No Active Prescriptions or Reported Medications Review of Systems Except as stated in HPI: all other systems reviewed are Neg Physical Exam Narrative GENERAL: Well-nourished, well-developed black female patient, in no acute distress SKIN: Warm and dry. No observed puncture wound to the left fifth finger. HEAD: Atraumatic. Normocephalic. EYES: Pupils equal and round. No scleral icterus. No injection or drainage. ENT: Mucosa pink and moist. Airway patent. NECK: Trachea midline. CARDIOVASCULAR: Regular rate. RESPIRATORY: No accessory muscle use. GASTROINTESTINAL: Flat. MUSCULOSKELETAL: No obvious deformities. No clubbing. No cyanosis. No edema. NEUROLOGICAL: Awake and alert. Oriented 3. No obvious cranial nerve deficits. Motor grossly within normal limits. Normal speech. PSYCHIATRIC: Appropriate mood and affect; insight and judgment normal. Data Data Last Documented VS Vital Signs Date Time Temp Pulse Resp B/P (MAP) Pulse Ox O2 Delivery O2 Flow Rate FiO2 04/05/17 11:15 98.7 78 16 113/71 (85) 100 Room [employer] Orders Tetanus/Diphtheria Tox Adult (Tetanus/Di (04/05/17 12:15) Ed Discharge Order (04/05/17 12:11) MDM Medical Decision Making Medical Screen Exam Complete: Yes Emergency Medical Condition: Yes Medical Record Reviewed: Yes Differential Diagnosis Needlestick injury of finger, and blood exposure, body fluid exposure, medical clearance Narrative Course 21-year-old female, [employer] employee, with a needlestick injury of the left fifth finger and exposure to blood or body fluid. Blood exposure protocol initiated. Tetanus updated in the ER. Patient declined postexposure prophylaxis initiation. Instructed to Follow-up with employee med. Instructed patient to follow up with primary care provider. Patient verbalizes understanding and agreement with treatment plan. Patient is medically cleared and stable for discharge. Discussed reasons to return to the emergency department. Patient agrees with treatment plan. The patients vital signs are stable and the patient is stable for outpatient follow-up and treatment. Patient discharged home, stable and in no acute distress. Diagnosis Primary Impression: Needlestick injury of finger Qualified Codes: S61.239A - Puncture wound without foreign body of unspecified finger without damage to nail, initial encounter; W27.3XXA - Contact with needle (sewing), initial encounter Additional Impression: Exposure to blood or body fluid Referrals: [facility] [place] ([facility] [place] Human Resources Primary Care Physician Patient Instructions: Body Substance Exposure (ED), General Instructions, Needle Stick Injuries (ED) Additional Instructions: Follow blood exposure protocol instructions Follow-up with employee med Follow-up with primary care Return to emergency department for worsening of symptoms Med/Other Pt SpecificInfo: No Change to Meds, No Meds Exist/No RX given Scripts No Active Prescriptions or Reported Meds Disposition: 01 DISCHARGE HOME Condition: Stable Jud Pascual Apr 05, 2017 12:06
[2017-04-05] MEDS ORDERED: TETANUS/DIPHTHERIA TOXOID ADULT 0.5 ML VIAL IM ONE (12:15)
== END 2017-04-05 13:01 | disposition home or self-care (01) ==
LOC: NEPD 11:14
DX: S61.237A Puncture wound without foreign body of left little finger without damage to nail, initial encounter (principal); W46.0XXA Contact with hypodermic needle, initial encounter; Y92.239 Unspecified place in hospital as the place of occurrence of the external cause; Y99.0 Civilian activity done for income or pay; Z23 Encounter for immunization
CPT/HCPCS: 90471; 90714

== ENCOUNTER → 2017-08-19 | Outpatient (CLI) | payer OTHER ==
[2017-08-19 09:30] LABS: AUTOMATED NEUTROPHIL # 1.5 TH/MM3 (1.8-7.7); BASOPHIL % 0.9 % (0.0-2.0); EOSINOPHIL # 0.1 TH/MM3 (0-0.4); EOSINOPHIL % 1.9 % (0.0-4.0); HEMATOCRIT 38.4 % (35.0-46.0); HEMOGLOBIN 12.5 GM/DL (11.6-15.3); LYMPH % 42.9 % (9.0-44.0); LYMPHOCYTE # 1.5 TH/MM3 (1.0-4.8); MEAN CELL VOLUME 88.9 FL (80.0-100.0); MEAN CORPUSCULAR HGB CONC 32.6 % (32.0-36.0); MEAN PLATELET VOLUME 7.3 FL (7.0-11.0); MONOCYTE # 0.3 TH/MM3 (0-0.9); NEUT % 45.3 % (16.0-70.0); PLATELET COUNT 354 TH/MM3 (150-450); RED BLOOD COUNT 4.32 MIL/MM3 (4.00-5.30); RED CELL DISTRIBUTION WIDTH 12.7 % (11.6-17.2); WHITE BLOOD COUNT 3.4 TH/MM3 (4.0-11.0)
== END ==
LOC: CLAB 08:59
PROVIDERS: ATTEND Obstetrics & Gynecology
DX: R10.2 Pelvic and perineal pain (principal); R19.00 Intra-abdominal and pelvic swelling, mass and lump, unspecified site; Z13.0 Encounter for screening for diseases of the blood and blood-forming organs and certain disorders involving the immune mechanism; Z13.29 Encounter for screening for other suspected endocrine disorder
CPT/HCPCS: 36415; 84443; 85025; 86304